=== PATIENT | female | born 1965 | race Caucasian/White ===

== ENCOUNTER 2018-11-30 10:37 | Emergency (ER) | payer OTHER ==
[~2018-11-30] VITALS: Ht 154.9 cm; Wt 94.0 kg
[2018-11-30 10:52] VITALS: Ht 154.9 cm; Wt 94.0 kg
[2018-11-30] MEDS ORDERED: ALBUTEROL 0.083% (NEB) 2.5 MG/3 ML AMP NEB STA ×2 (11:01→14:44)
[2018-11-30] MEDS ORDERED: DEXAMETHASONE 10 MG/ML 1 ML INJ IV STA (11:01)
[2018-11-30] MEDS ORDERED: IPRATROPIUM (NEB) 0.5 MG/2.5 ML AMP NEB STA ×2 (11:01→14:44)
[2018-11-30] MEDS ORDERED: MAGNESIUM SULFATE 2 GM/50 ML 50 ML IVPB STA (11:01)
--- NOTE | 2018-11-30 12:38 | ERD ---
ER Documentation Chief Complaint Chief Complaint pt is bib family with c/o sob, wheezing, hx asthma HPI This is a 53-year-old female with a history of asthma who presents with 1 day of shortness of breath and wheezing, she states that she has been having a cough the last couple of days, she denies a fever, no nausea or vomiting. She has no history of coronary artery disease, no nausea or vomiting. she denies chest pain. Initially brought in straight from triage, given that she was noted to be hypoxic ROS All systems reviewed and are negative except as per history of present illness. Medications Home Meds Active Scripts Ipratropium-Albuterol (Ipratropium-Albuterol) 0.5-3 Mg/3 Ml Ampul.neb, 3 ML INH Q4H PRN for SHORTNESS OF BREATH, #30 AMP Prov:AP ALBA MD 11/30/18 Albuterol Sulfate* (Albuterol Sulfate* Neb) 0.083%-3 Ml Neb, 2.5 MG NEB Q4 PRN for SHORTNESS OF BREATH, #30 EA Prov:AP ALBA MD 11/30/18 Reported Medications Fluoxetine Hcl* (Prozac*) 40 Mg Capsule, 40 MG PO QAM, CAP 11/30/18 Clonazepam* (Klonopin*) 1 Mg Tablet, 1 MG PO Q8H PRN for ANXIETY, TAB 11/30/18 Diphenhydramine Hcl* (Benadryl*) 25 Mg Cap, 50 MG PO QHS PRN for ITCHING, CAP 11/30/18 Atorvastatin Calcium* (Atorvastatin Calcium*) 20 Mg Tablet, 20 MG PO QHS, #30 TAB 11/30/18 Fluticasone/Vilanterol (Breo Ellipta 200-25 Mcg INH) 1 Each Blst.w.dev, 1 PUFF INHALATION DAILY, #1 INHALER 11/30/18 Montelukast Sodium* (Montelukast Sodium*) 10 Mg Tablet, 10 MG PO QHS, #30 TAB 11/30/18 Pantoprazole* (Pantoprazole*) 40 Mg Tablet.dr, 40 MG PO AC BREAKFAST, TAB 11/30/18 Gabapentin* (Gabapentin*) 300 Mg Capsule, 300 MG PO TID, #90 CAP 11/30/18 Aspirin* (Aspirin* EC) 81 Mg Tablet.dr, 81 MG PO DAILY, TAB 11/30/18 Rivaroxaban* (Xarelto*) 10 Mg Tablet, 10 MG PO DAILY, TAB 11/30/18 Albuterol Sulfate* (Albuterol Sulfate* Neb) 0.083%-3 Ml Neb, 2.5 MG NEB Q4H PRN for WHEEZING AND SOB, #30 VIAL 11/30/18 Albuterol Sulfate* (Ventolin HFA*) 18 Gm Hfa.aer.ad, 2 PUFF INHALATION Q4H, #1 INHALER 11/30/18 Allergies Allergies: Coded Allergies: Penicillins (Verified Allergy, Unknown, 11/30/18) PMhx/Soc History of Surgery: Yes (Cholecystectomy, Tubal ligation) Anesthesia Reaction: No Hx Neurological Disorder: No Hx Respiratory Disorders: Yes (asthma) Hx Psychiatric Problems: No Hx Miscellaneous Medical Probl: Yes (high Cholestreol) Hx Alcohol Use: No Hx Substance Use: No Hx Tobacco Use: Yes Smoking Status: Current every day smoker Physical Exam Vitals Vital Signs Date Temp Pulse Resp B/P (MAP) Pulse Ox O2 O2 Flow FiO2 Time Delivery Rate 11/30/18 65 20 98 Nasal 4.0 14:56 Cannula 11/30/18 76 20 96/66 (76) 95 Room Air 4.0 14:00 Nasal Cannula 11/30/18 78 22 113/60 96 Nasal 4.0 11:42 (77) Cannula 11/30/18 4.0 11:30 11/30/18 68 15 95 Nasal 4.0 11:21 Cannula 11/30/18 98.3 84 24 115/56 82 10:52 (75) Physical Exam Const: Tachypnea, noted to be in respiratory distress Head: Atraumatic Eyes: Normal Conjunctiva ENT: Normal External Ears, Nose and Mouth. Neck: Full range of motion. No meningismus. Resp: Bilateral expiratory wheezing Cardio: Regular rate and rhythm, no murmurs Abd: Soft, non tender, non distended. Normal bowel sounds Skin: No petechiae or rashes Back: No midline or flank tenderness Ext: No cyanosis, or edema Neur: Awake and alert Psych: Normal Mood and Affect Result Diagram: 11/30/18 1233 11/30/18 1233 Results 24 hrs Laboratory Tests Test 11/30/18 12:33 White Blood Count 7.3 10^3/ul Red Blood Count 5.82 10^6/ul Hemoglobin 12.1 g/dl Hematocrit 43.4 % Mean Corpuscular Volume 74.6 fl Mean Corpuscular Hemoglobin 20.8 pg Mean Corpuscular Hemoglobin Concent 27.9 g/dl Red Cell Distribution Width 22.5 % Platelet Count 463 10^3/UL Mean Platelet Volume 8.9 fl Immature Granulocytes % 0.400 % Neutrophils % 69.6 % Lymphocytes % 19.9 % Monocytes % 6.3 % Eosinophils % 3.1 % Basophils % 0.7 % Nucleated Red Blood Cells % 0.0 /100WBC Immature Granulocytes # 0.030 10^3/ul Neutrophils # 5.1 10^3/ul Lymphocytes # 1.5 10^3/ul Monocytes # 0.5 10^3/ul Eosinophils # 0.2 10^3/ul Basophils # 0.1 10^3/ul Nucleated Red Blood Cells # 0.0 10^3/ul Sodium Level 138 mmol/L Potassium Level 4.0 mmol/L Chloride Level 102 mmol/L Carbon Dioxide Level 29 mmol/L Anion Gap 7 Blood Urea Nitrogen 6 mg/dl Creatinine 0.87 mg/dl Est Glomerular Filtrat Rate mL/min > 60 mL/min Glucose Level 93 mg/dl Calcium Level 8.5 mg/dl Troponin I < 0.012 ng/ml Current Medications Medications Dose Sig/Alex Start Time Status Last (Trade) Ordered Route PRN Stop Time Admin Dose Reason Admin Albuterol 5 mg ONCE STAT 11/30/18 DC 11/30/18 (Proventil NEB 11:01 11:21 0.083% (Neb)) 11/30/18 11:03 Ipratropium 0.5 mg ONCE STAT 11/30/18 DC 11/30/18 [place] NEB 11:01 11:21 (Atrovent 11/30/18 11:03 0.02% (Neb)) 10 mg ONCE STAT 11/30/18 DC 11/30/18 Dexamethasone IV 11:01 11:34 (Decadron) 11/30/18 11:03 Magnesium 50 ml @ 25 ONCE STAT 11/30/18 DC 11/30/18 Sulfate mls/hr IVPB 11:01 11:34 11/30/18 13:00 Albuterol 5 mg ONCE STAT 11/30/18 DC 4/12/19 (Proventil NEB 14:44 14:56 0.083% (Neb)) 11/30/18 14:46 Ipratropium 0.5 mg ONCE STAT 11/30/18 DC 11/30/18 [place] NEB 14:44 14:56 (Atrovent 11/30/18 14:46 0.02% (Neb)) Procedures/MDM This is a 53-year-old female who presents for evaluation of shortness of breath. On exam, the patient was initially tachypneic, after breathing treatment and O2 support, she felt significantly better. Chest x-ray was noted to have cardiom egaly, however she had no clinical signs of CHF, with no edema, no JVD. She has no infectious symptoms. EKG: Rate/Rhythm: Normal Sinus Rhythm QRS, ST, T-waves: No changes consistent w/ acute ischemia Impression: No evidence of ischemia or arrhythmia 208 PM: The patient received a dose of nebulized treatments, as well as steroids, she continued to be hypoxic, thus she will require admission for observation, her chest x-ray was negative, her influenza was also negative. Cardiac workup was ordered and given her age, plan will be for admission to observation. 3:01: The patient has made the decision to leave this Emergency Department and any ongoing care against the advice of the emergency physician. The patient has been informed of and verbalized understanding of the inherent risks of this decision, including , disability and [worsening clinical condition]. The patient explained to me the reason for wanting to sign out against medical advice which was she did not want to stay in the hospital, she had oxygen at home, and felt that she would be okay. The patient was given alternative therapeutic options including a subsequent dose of nebulized treatment prior to leaving, as well as a prescription for her nebulizer at home. The patient had decision-making capacity, she was able to understand the risks of leaving AGAINST MEDICAL ADVICE, and was able to repeat those to me. I discussed this with both her as well as her family, and all were in agreement. The patient has the capacity to make this decision and accepts the responsibility of leaving at this time. The patient and all necessary parties have been advised that the patient may return at any time for further evaluation or treatment. The patient's condition at time of discharge is guarded. I encouraged her to return to the ED immediately if she wishes to be reevaluated and admitted. Departure Diagnosis: Primary Impression: Shortness of breath Condition: Stable PARTH,AP LEIVA Nov 30, 2018 12:38
[2018-11-30] MEDS ORDERED: ALBU18HF INHALATION (13:18)
[2018-11-30] MEDS ORDERED: RIVA10TA PO (13:19)
[2018-11-30] MEDS ORDERED: ASPI-817 PO (13:19)
[2018-11-30] MEDS ORDERED: ALBU2.5V3 NEB ×2 (13:19→14:58)
[2018-11-30] MEDS ORDERED: GABA300C16 PO (13:19)
[2018-11-30] MEDS ORDERED: MONT10TA24 PO (13:20)
[2018-11-30] MEDS ORDERED: PANT40TA4 PO (13:20)
[2018-11-30] MEDS ORDERED: ATOR20TA38 PO (13:21)
[2018-11-30] MEDS ORDERED: BEN25 PO (13:21)
[2018-11-30] MEDS ORDERED: FLUT1BLS INHALATION (13:21)
[2018-11-30] MEDS ORDERED: CLON-412 PO (13:22)
[2018-11-30] MEDS ORDERED: FLUO40CA10 PO (13:22)
[2018-11-30] MEDS ORDERED: IPRA3AMP29 INH (14:58)
[2018-11-30] MEDS ORDERED: PRED50TA PO (15:11)
[2018-11-30 15:31] VITALS: BP 106/68; PULSE 78; RESP 18
== END 2018-11-30 15:36 | disposition left against medical advice (07) ==
LOC: E/R 10:37
DX: R06.02 Shortness of breath (principal); J45.901 Unspecified asthma with (acute) exacerbation; F17.210 Nicotine dependence, cigarettes, uncomplicated; Z79.82 Long term (current) use of aspirin
CPT/HCPCS: 71045; 80048; 84484; 85025; 87400; 93005; 94640; 94664; 96374; 96375; J1100; J3475; Z7502; Z7610